=== PATIENT | female | born 1985 | race Caucasian/White ===

== ENCOUNTER → 2017-08-10 | Outpatient (CLI) | payer BC ==
[~2017-08-10] MED LIST: IBUP-1428 PO; SERT50TA PO; SUMA25TA12 PO; TOPI50TA16 PO
== END | disposition home or self-care (01) ==
LOC: C.LABSPEC 13:39
PROVIDERS: ATTEND Obstetrics & Gynecology
DX: Z34.81 Encounter for supervision of other normal pregnancy, first trimester (principal)

== ENCOUNTER → 2017-08-11 | Outpatient (CLI) | payer BC | END | disposition home or self-care (01) | LOC: C.LABSPEC 17:37 | PROVIDERS: ATTEND Obstetrics & Gynecology | DX: Z34.81 Encounter for supervision of other normal pregnancy, first trimester (principal) ==

== ENCOUNTER → 2017-08-11 | Outpatient (CLI) | payer BC | END | disposition home or self-care (01) | LOC: C.PAPS 07:57 | PROVIDERS: ATTEND Obstetrics & Gynecology | DX: Z34.81 Encounter for supervision of other normal pregnancy, first trimester (principal) ==

== ENCOUNTER → 2017-08-11 | Outpatient (CLI) | payer BC ==
[2017-08-11 16:14] LABS: BASO % 0.4 %; BASO ABS # 0.04 K/uL (0-0.2); EOS % 1.9 %; HEMATOCRIT 37.2 % (37-47); HEMOGLOBIN 12.3 g/dL (12.0-16.0); IG# 0.03 K/uL (0.00-0.02); LYMPH % 31.7 %; LYMPH ABS # 3.37 K/uL (1.2-3.4); MEAN CELL VOLUME 93.2 fL (80-100); MEAN CORPUSCULAR HEMOGLOBIN 30.8 pg (25-34); MEAN CORPUSCULAR HGB CONC 33.1 g/dl (32-36); MEAN PLATELET VOLUME 9.6 fL (7.4-10.4); MONO % 14.6 %; MONO ABS # 1.55 K/uL (0.11-0.59); NEUT % 51.1 %; NEUT ABS # 5.45 K/uL (1.4-6.5); PLATELET COUNT 287 K/uL (130-400); RED CELL DISTRIBUTION WIDTH CV 13.2 % (11.5-14.5); RED CELL DISTRIBUTION WIDTH SD 45.4 fL (36.4-46.3); WHITE BLOOD COUNT 10.64 K/uL (4.8-10.8)
== END | disposition home or self-care (01) ==
LOC: C.LAB1850 15:41
PROVIDERS: ATTEND Obstetrics & Gynecology
DX: Z34.81 Encounter for supervision of other normal pregnancy, first trimester (principal)

== ENCOUNTER → 2017-10-03 | Outpatient (CLI) | payer BC | END | disposition home or self-care (01) | LOC: C.LAB1850 09:50 | PROVIDERS: ATTEND Obstetrics & Gynecology | DX: Z34.82 Encounter for supervision of other normal pregnancy, second trimester (principal) ==

== ENCOUNTER 2017-10-14 17:36 | Emergency (ER) | payer BC ==
[~2017-10-14] VITALS: Ht 160 cm; Wt 96.1 kg
[2017-10-14 17:40] VITALS: TEMP 36.7; Ht 160 cm; Wt 96.1 kg
[2017-10-14] MEDS ORDERED: ONDA4TAB10 SL (18:01)
[2017-10-14] MEDS ORDERED: SODIUM CHLORIDE 0.9% 1000ML 2,000 ML IV STA (18:07)
[2017-10-14] MEDS ORDERED: ACETAMINOPHEN 500 MG TAB PO STA (18:07)
[2017-10-14] MEDS ORDERED: RANITIDINE HCL 150 MG TAB PO ONE (18:15)
--- NOTE | 2017-10-14 18:18 | EMERGENCY ROOM VISIT NOTE ---
History Report prepared by Shadi: Betina Rhodes Under the Supervision of: Dr. Modesto Henderson M.D. First contact with patient: 18:01 Chief Complaint: ABDOMINAL PAIN Stated Complaint: UPPER ABDOMINAL PAIN, ABOVE BELLY BUTTON- 18WKS OR History of Present Illness The patient is a 32 year old female who presents to the Emergency Room with complaints of constant abdominal pain beginning 3 weeks ago. The patient is 18 weeks . The patient had an appointment wit her OBGYN two weeks ago who told he her "things were just stretching". She called her OBGYN last night who told her that her symptoms may be related to her kidney stones. The patient reports her pain worsened this morning when she woke up. She rates her pain is an 8/10 when she moves. She states her pain worsened with movement. She reports eating does not worsen her pain. The patient took "gas pills" today with no relief. She denies any nausea, vomiting, chest pain, shortness of breath, vaginal bleeding or discharge. She has been eating and drinking normally. The patient reports her stools have been harder than normal. She states her last bowel movement was last night. This is the patient's 3rd . She denies any issues with her previous pregnancies. The patient last took Tylenol two hours ago. Source of History: patient Onset: 3 weeks ago Position: abdomen Symptom Intensity: 8/10 Quality: other (pain) Timing: constant Modifying Factors (Worsening): movement Associated Symptoms: + abdominal pain, No chest pain, No SOB, No nausea, No vomiting Review of Systems See HPI for pertinent positives and negatives. A total of ten systems were reviewed and were otherwise negative. Past Medical & Surgical Medical Problems: (1) Anxiety (2) Headache, chronic migraine without aura (3) Previous section Social History Smoking Status: Former Smoker Marital Status: Housing Status: lives with family Occupation Status: employed Current/Historical Medications Scheduled Ondasetron Odt (Zofran Odt), 4 MG SL Q6H Allergies Coded Allergies: Chocolate (Verified Allergy, Intermediate, HIVES, 08/07/10) Physical Exam Vital Signs Date Time Temp Pulse Resp B/P (MAP) Pulse Ox O2 Delivery O2 Flow Rate FiO2 10/14/17 22:24 75 18 118/74 98 10/14/17 21:56 78 5/5/18 20:53 85 18 125/83 98 Room Air 10/14/17 18:58 91 15 126/83 98 Room Air 10/14/17 18:54 95 10/14/17 17:40 36.7 104 20 141/93 98 Room Air Physical Exam GENERAL: Awake, alert, well-appearing, in no distress HENT: Normocephalic, atraumatic. Oropharynx unremarkable. EYES: Normal conjunctiva. Sclera non-icteric. NECK: Supple. No nuchal rigidity. FROM. No JVD. RESPIRATORY: Clear to auscultation. CARDIAC: Regular rate, normal rhythm. Extremities warm and well perfused. Pulses equal. ABDOMEN: Intermittent mild tenderness to upper abdomen. Soft, non-distended. No rebound or guarding. No masses. RECTAL: Deferred. MUSCULOSKELETAL: Chest examination reveals no tenderness. The back is symmetrical on inspection without obvious abnormality. There is no CVA tenderness to palpation. No joint edema. LOWER EXTREMITIES: Calves are equal size bilaterally and non-tender. No edema. No discoloration. NEURO: Normal sensorium. No sensory or motor deficits noted. SKIN: No rash or jaundice noted. Medical Decision & Procedures ER Provider Diagnostic Interpretation: Radiology results as stated below per my review and radiologist interpretation: LIMITED (US) FINDINGS: Uterus: Single live intrauterine . Femur length 23 mm corresponding to an estimated gestational age of 16 weeks 6 days. This equates to a estimated date of delivery 03/25/2018. This is within the expected range for the reported gestational age. heart rate 153 beats per minute. Anteverted uterus. Normal amniotic fluid volume. Posterior placental implantation. No perigestational fluid to suggest hemorrhage. Cervix long and closed. Right adnexum: Right ovary not visualized. Left adnexum: Left ovary contains a corpus luteum. Left ovary measures 3.0 x 1.5 x 2.8 cm. Normal color Doppler flow and arterial and venous waveforms within the ovarian parenchyma. Other: No free fluid. IMPRESSION: Single live intrauterine second trimester fetus with an estimated gestational age of 16 weeks 6 days by this ultrasound, which is concordant with the reported gestational age of 17 weeks 3 days. No abnormality. Dedicated anatomic survey was not performed. Electronically signed by: Ez Carmona M.D. GALLBLADDER-ABD LIMITED FINDINGS: Pancreas: Visualized portions of the pancreatic head and body normal. Liver: Normal echogenicity and echotexture. The liver measures 16.2 cm in maximal sagittal dimension. No sonographic evidence of hepatic mass. Main portal vein patent with normal directional flow. Biliary: No intrahepatic biliary ductal dilatation. Common bile duct measures up to 3 mm in diameter. Gallbladder: No evidence of gallstones, gallbladder wall thickening, gallbladder distention, or pericholecystic fluid or inflammatory change. Sonographic Francis's sign negative. Right kidney: Normal in appearance without evidence of hydronephrosis. Ascites: None. Other: None. IMPRESSION: No cholelithiasis or biliary ductal dilatation. Electronically signed by: Ez Carmona M.D. 10/14/2017 9:14 PM Laboratory Results 10/14/17 18:40 Red Blood Count 3.76, Mean Corpuscular Volume 90.4, Mean Corpuscular Hemoglobin 31.4, Mean Corpuscular Hemoglobin Concent 34.7, Mean Platelet Volume 9.5, Neutrophils (%) (Auto) 62.3, Lymphocytes (%) (Auto) 26.0, Monocytes (%) (Auto) 9.9, Eosinophils (%) (Auto) 1.4, Basophils (%) (Auto) 0.1, Neutrophils # (Auto) 5.76, Lymphocytes # (Auto) 2.41, Monocytes # (Auto) 0.92, Eosinophils # (Auto) 0.13, Basophils # (Auto) 0.01 10/14/17 18:40 Test 10/14/17 18:40 White Blood Count 9.26 K/uL (4.8-10.8) Red Blood Count 3.76 M/uL (4.2-5.4) Hemoglobin 11.8 g/dL (12.0-16.0) Hematocrit 34.0 % (37-47) Mean Corpuscular Volume 90.4 fL (80-100) Mean Corpuscular Hemoglobin 31.4 pg (25-34) Mean Corpuscular Hemoglobin Concent 34.7 g/dl (32-36) Platelet Count 255 K/uL (130-400) Mean Platelet Volume 9.5 fL (7.4-10.4) Neutrophils (%) (Auto) 62.3 % Lymphocytes (%) (Auto) 26.0 % Monocytes (%) (Auto) 9.9 % Eosinophils (%) (Auto) 1.4 % Basophils (%) (Auto) 0.1 % Neutrophils # (Auto) 5.76 K/uL (1.4-6.5) Lymphocytes # (Auto) 2.41 K/uL (1.2-3.4) Monocytes # (Auto) 0.92 K/uL (0.11-0.59) Eosinophils # (Auto) 0.13 K/uL (0-0.5) Basophils # (Auto) 0.01 K/uL (0-0.2) RDW Standard Deviation 42.2 fL (36.4-46.3) RDW Coefficient of Variation 12.8 % (11.5-14.5) Immature Granulocyte % (Auto) 0.3 % Immature Granulocyte # (Auto) 0.03 K/uL (0.00-0.02) Urine Color YELLOW Urine Appearance CLEAR (CLEAR) Urine pH 6.5 (4.5-7.5) Urine Specific [place] 1.018 (1.000-1.030) Urine Protein NEG (NEG) Urine Glucose (UA) NEG (NEG) Urine Ketones 1+ (NEG) Urine Occult Blood NEG (NEG) Urine Nitrite NEG (NEG) Urine Bilirubin NEG (NEG) Urine Urobilinogen NEG (NEG) Urine Leukocyte Esterase NEG (NEG) Anion Gap 6.0 mmol/L (3-11) Est Creatinine Clear Calc Drug Dose 204.3 ml/min Estimated GFR () > 150.0 Estimated GFR (Non- 134.5 BUN/Creatinine Ratio 13.3 (10-20) Calcium Level 8.7 mg/dl (8.5-10.1) Total Bilirubin 0.2 mg/dl (0.2-1) Direct Bilirubin < 0.1 mg/dl (0-0.2) Aspartate Amino Transf (AST/SGOT) 12 U/L (15-37) Alanine Aminotransferase (ALT/SGPT) 16 U/L (12-78) Alkaline Phosphatase 92 U/L (45-117) Total Protein 6.5 gm/dl (6.4-8.2) Albumin 2.6 gm/dl (3.4-5.0) Lipase 66 U/L (73-393) Laboratory results reviewed by me Medications Administered Medications (Trade) Dose Ordered Sig/Luis Route Start Time Stop Time Status Last Admin Dose Admin Sodium Chloride 2,000 ml @ 999 mls/hr Q2H1M STAT IV 5/5/18 18:07 10/14/17 20:07 DC 10/14/17 18:30 999 MLS/HR Ranitidine HCl (zANTac TAB) 150 mg NOW ONCE PO 10/14/17 18:15 10/14/17 18:20 DC 10/14/17 18:29 150 MG Acetaminophen (Tylenol Tab) 1,000 mg NOW STAT PO 10/14/17 18:07 10/14/17 18:20 DC 10/14/17 18:30 1,000 MG ED Course 1805: The patient was evaluated in room B10. A complete history and physical exam was performed. 2147: I updated the patient on her test results. She is resting comfortably. 2214: I reevaluated the patient. Discussed results and discharge instructions: She verbalized understanding and agreement. The patient is ready for discharge. Medical Decision I reviewed the patient's past medical history, medications, and the nursing notes as described above. Differential diagnosis: Etiologies such as appendicitis, diverticulitis, PUD, biliary pathology, UTI, pancreatitis, obstruction, mesenteric ischemia, aortic pathology, infections, inflammatory bowel disease, renal colic, as well as others were entertained. The patient is a 32 y/o woman current 18 weeks GA who presents to the emergency department with abdominal wall pain x 2 weeks per HPI. On arrival the patient is well-appearing, in NAD, AFVSS. On exam the patient has mild upper abdominal wall ttp however no tenderness with performing bedside ultrasound. Bedside ultrasound demonstrates active fetus with FHR 160. Gallbladder ultrasound at the bedside unremarkable negative for gallstones or pericholecystic fluid. Bedside renal ultrasound negative for hydronephrosis. Formal gallbladder ultrasound also unremarkable. Labs unremarkable. Patient reports no improvement with zantac therefore unlikely to be gastritis/ reflux. Given the patient's reproducible abdominal wall discomfort the setting of reassuring w/u, sx most c/w abdominal muscle strain, possible related to stretching from . Plan for pcp f/u and OB f/u as scheduled. Findings and plan for follow-up reviewed with patient. Patient agreeable and d/c'd per discharge instructions. Medication Reconcilliation Current Medication List: was personally reviewed by me Blood Pressure Screening Patient's blood pressure: Normal blood pressure Impression Primary Impression: Abdominal muscle strain Scribe Attestation The scribe's documentation has been prepared under my direction and personally reviewed by me in its entirety. I confirm that the note above accurately reflects all work, treatment, procedures, and medical decision making performed by me. 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 Your symptoms are most likely due to an abdominal wall muscle strain. Otherwise, your exam, lab results, and gallbladder ultrasound did not show signs of an emergent condition at this time. Acetaminophen for pain and fevers as needed. Drink plenty of fluids to ensure hydration. Return to the emergency department for worsening symptoms as described in the accompanying instructions.
[2017-10-14 18:55] LABS: BASO % 0.1 %; BASO ABS # 0.01 K/uL (0-0.2); EOS % 1.4 %; EOS ABS # 0.13 K/uL (0-0.5); HEMOGLOBIN 11.8 g/dL (12.0-16.0); IG# 0.03 K/uL (0.00-0.02); LYMPH ABS # 2.41 K/uL (1.2-3.4); MEAN CELL VOLUME 90.4 fL (80-100); MEAN CORPUSCULAR HEMOGLOBIN 31.4 pg (25-34); MEAN CORPUSCULAR HGB CONC 34.7 g/dl (32-36); MEAN PLATELET VOLUME 9.5 fL (7.4-10.4); MONO % 9.9 %; MONO ABS # 0.92 K/uL (0.11-0.59); NEUT % 62.3 %; NEUT ABS # 5.76 K/uL (1.4-6.5); PLATELET COUNT 255 K/uL (130-400); RED CELL DISTRIBUTION WIDTH CV 12.8 % (11.5-14.5); RED CELL DISTRIBUTION WIDTH SD 42.2 fL (36.4-46.3); WHITE BLOOD COUNT 9.26 K/uL (4.8-10.8)
[2017-10-14 19:13] LABS: ALBUMIN 2.6 gm/dl (3.4-5.0); ALT/SGPT 16 U/L (12-78); AST/SGOT 12 U/L (15-37); BLOOD UREA NITROGEN 6 mg/dl (7-18); CALCIUM 8.7 mg/dl (8.5-10.1); CARBON DIOXIDE 23 mmol/L (21-32); CREATININE 0.44 mg/dl (0.60-1.20); GLUCOSE 114 mg/dl (70-99); LIPASE 66 U/L (73-393); POTASSIUM 3.3 mmol/L (3.5-5.1); SODIUM 137 mmol/L (136-145)
[2017-10-14 19:16] LABS: ALKALINE PHOSPHATASE 92 U/L (45-117); TOTAL PROTEIN 6.5 gm/dl (6.4-8.2)
--- NOTE | 2017-10-14 21:05 | DIAGNOSTIC IMAGING REPORT ---
LIMITED (US) CLINICAL HISTORY: 32 years-old Female presenting with transabdominal ultrasound, upper abd pain, , reportedly 17 weeks 3 days with an estimated date of delivery 03/21/2018. TECHNIQUE: Real-time grayscale and M-mode Doppler ultrasound imaging of the pelvis was performed using a transabdominal probe. Color and spectral Doppler ultrasound imaging of the adnexa was also performed. COMPARISON: None. FINDINGS: Uterus: Single live intrauterine . Femur length 23 mm corresponding to an estimated gestational age of 16 weeks 6 days. This equates to a estimated date of delivery 03/25/2018. This is within the expected range for the reported gestational age. heart rate 153 beats per minute. Anteverted uterus. Normal amniotic fluid volume. Posterior placental implantation. No perigestational fluid to suggest hemorrhage. Cervix long and closed. Right adnexum: Right ovary not visualized. Left adnexum: Left ovary contains a corpus luteum. Left ovary measures 3.0 x 1.5 x 2.8 cm. Normal color Doppler flow and arterial and venous waveforms within the ovarian parenchyma. Other: No free fluid. IMPRESSION: Single live intrauterine second trimester fetus with an estimated gestational age of 16 weeks 6 days by this ultrasound, which is concordant with the reported gestational age of 17 weeks 3 days. No abnormality. Dedicated anatomic survey was not performed. Electronically signed by: Ez Carmona M.D. 10/14/2017 9:04 PM Dictated Date/Time: 10/14/2017 9:00 PM
--- NOTE | 2017-10-14 21:15 | DIAGNOSTIC IMAGING REPORT ---
GALLBLADDER-ABD LIMITED CLINICAL HISTORY: 32 years-old Female presenting with upper abd pain. TECHNIQUE: Real-time grayscale and limited color Doppler ultrasound imaging of the abdomen limited to the right upper quadrant was performed. COMPARISON: None. FINDINGS: Pancreas: Visualized portions of the pancreatic head and body normal. Liver: Normal echogenicity and echotexture. The liver measures 16.2 cm in maximal sagittal dimension. No sonographic evidence of hepatic mass. Main portal vein patent with normal directional flow. Biliary: No intrahepatic biliary ductal dilatation. Common bile duct measures up to 3 mm in diameter. Gallbladder: No evidence of gallstones, gallbladder wall thickening, gallbladder distention, or pericholecystic fluid or inflammatory change. Sonographic Francis's sign negative. Right kidney: Normal in appearance without evidence of hydronephrosis. Ascites: None. Other: None. IMPRESSION: No cholelithiasis or biliary ductal dilatation. Electronically signed by: Ez Carmona M.D. 10/14/2017 9:14 PM Dictated Date/Time: 10/14/2017 9:13 PM
[2017-10-14 22:24] VITALS: BP 118/74; PULSE 75; O2SAT 98
== END 2017-10-14 22:25 | disposition home or self-care (01) ==
LOC: C.EDB 17:37
DX: S39.011A Strain of muscle, fascia and tendon of abdomen, initial encounter (principal); X50.1XXA Overexertion from prolonged static or awkward postures, initial encounter; Z3A.18 18 weeks gestation of pregnancy; Z87.891 Personal history of nicotine dependence; Z91.018 Allergy to other foods

== ENCOUNTER → 2017-10-17 | Outpatient (CLI) | payer BC ==
[~2017-10-17] MED LIST changes: -IBUP-1428 PO; +ONDA4TAB10 SL; -SERT50TA PO; -SUMA25TA12 PO; -TOPI50TA16 PO
== END | disposition home or self-care (01) ==
LOC: C.LAB1850 08:34
PROVIDERS: ATTEND Obstetrics & Gynecology
DX: O28.1 Abnormal biochemical finding on antenatal screening of mother (principal); Z3A.00 Weeks of gestation of pregnancy not specified

== ENCOUNTER → 2018-01-01 | Outpatient (CLI) | payer BC ==
[~2018-01-01] MED LIST changes: +CLR10 PO; +OXYC-737 PO
[2018-01-01 12:18] LABS: HEMATOCRIT 33.7 % (37-47); HEMOGLOBIN 11.2 g/dL (12.0-16.0)
== END | disposition home or self-care (01) ==
LOC: C.LAB1850 11:07
PROVIDERS: ATTEND Obstetrics & Gynecology
DX: O24.419 Gestational diabetes mellitus in pregnancy, unspecified control (principal)

== ENCOUNTER 2018-01-30 08:37 | Outpatient (CLI) | payer BC ==
[~2018-01-30] VITALS: Ht 160 cm; Wt 100.7 kg
[2018-01-30 10:05] VITALS: Ht 160 cm; Wt 100.7 kg
[2018-01-30] MEDS ORDERED: PRENTAB26 PO (10:09)
[2018-01-30] MEDS ORDERED: ACETAMINOPHEN 325 MG TAB PO PRN (11:15)
== END 2018-01-30 11:40 | disposition other institution (70) ==
LOC: C.OPB 08:37 → C.LD 08:38 → C.OPB 11:40
PROVIDERS: ATTEND Obstetrics & Gynecology
DX: Z34.83 Encounter for supervision of other normal pregnancy, third trimester (principal); W10.9XXA Fall (on) (from) unspecified stairs and steps, initial encounter; Z3A.33 33 weeks gestation of pregnancy

== ENCOUNTER 2018-01-30 11:48 | Emergency (ER) | payer BC ==
[~2018-01-30 11:48] MED LIST changes: +PRENTAB26 PO
[2018-01-30 11:59] VITALS: TEMP 36.9; Ht 160 cm
--- NOTE | 2018-01-30 12:45 | DIAGNOSTIC IMAGING REPORT ---
R ANKLE MIN 3 VIEWS ROUTINE CLINICAL HISTORY: Right ankle pain following fall. COMPARISON: None FINDINGS: Alignment of the right ankle is anatomic. No acute fracture. Talar dome is intact. IMPRESSION: No acute fracture or dislocation within the right ankle. Electronically signed by: Ronald Wilson M.D. 01/30/2018 12:44 PM Dictated Date/Time: 01/30/2018 12:43 PM
--- NOTE | 2018-01-30 12:47 | DIAGNOSTIC IMAGING REPORT ---
R FOOT MIN 3 VIEWS ROUTINE CLINICAL HISTORY: Right foot pain following fall. COMPARISON: None FINDINGS: Tarsometatarsal joints are intact. No acute fracture within the right foot is identified. No osseous lesion is identified. No erosions are identified. Lateral view demonstrates suspected dorsal midfoot soft tissue swelling. IMPRESSION: No acute fracture or dislocation within the right foot. Electronically signed by: Ronald Wilson M.D. 01/30/2018 12:46 PM Dictated Date/Time: 01/30/2018 12:44 PM
--- NOTE | 2018-01-30 13:15 | EMERGENCY ROOM VISIT NOTE ---
History First contact with patient: 12:08 Chief Complaint: FALL Stated Complaint: PAIN IN RIGHT FOOT, ANKLE, KNEE AND BACK History of Present Illness The patient is a 32 year old female who presents to the Emergency Room with complaints of right ankle and low back pain. The patient reports that she woke up early this morning to go to the bathroom and slid down the steps. She reports pain in her right ankle as well as her right low back. The patient is currently 33 weeks . She was already seen at L&D and monitored for 3 hours. She reports she has no abdominal pain or vaginal bleeding. She rates her overall discomfort a 5/10. She has taken Tylenol for pain with little relief. Review of Systems A complete 10 point review of systems was reviewed with the patient with pertinent positives and negatives as per history of present illness. All else were negative. Past Medical/Surgical History Medical Problems: (1) 33 weeks gestation of (2) Anxiety (3) Fall (on) (from) other stairs and steps, initial encounter (4) Headache, chronic migraine without aura (5) Previous section Family History Diabetes mellitus FHx: cancer FHx: gallbladder disease FHx: heart disease FHx: hypertension FHx: kidney disease Social History Smoking Status: Former Smoker Alcohol Use: none Marital Status: Housing Status: lives with family Occupation Status: employed Current/Historical Medications Scheduled Loratadine (Claritin), 10 MG PO DAILY Multivit/Min/Iron/Fol Ac/Pren ( Vitamin), 1 TAB PO DAILY Ondasetron Odt (Zofran Odt), 4-8 MG SL Q6H Physical Exam Vital Signs Date Time Temp Pulse Resp B/P (MAP) Pulse Ox O2 Delivery O2 Flow Rate FiO2 01/30/18 13:30 76 18 115/72 98 Room Air 01/30/18 11:59 36.9 97 18 134/87 99 Room Air Physical Exam VITALS: Vitals are noted on the nurse's note and reviewed by myself. Vital signs stable. GENERAL: This is a 32-year-old female, in no acute distress, nondiaphoretic, well-developed well-nourished. SKIN: No lacerations or abrasions. MUSCULOSKELETAL: There is mild tenderness to palpation in the right lumbar region. No tenderness of the lumbar spinous processes. There is tenderness of the medial aspect of the right ankle and foot. Full range of motion of the ankle and all toes. Capillary refill within 2 seconds. No tenderness of the proximal fibula/tibia. NEURO: Patient was alert and oriented to person place and time. Distal sensation intact. Medical Decision & Procedures ER Provider Diagnostic Interpretation: R ANKLE MIN 3 VIEWS ROUTINE IMPRESSION: No acute fracture or dislocation within the right ankle. R FOOT MIN 3 VIEWS ROUTINE IMPRESSION: No acute fracture or dislocation within the right foot. Medical Decision Differential diagnosis includes fracture, contusion, sprain, among others. The patient was evaluated as above. X-rays of the right ankle and foot were obtained and read by radiology with no acute fractures. Patient has some mild tenderness in the right lumbar region which is likely musculoskeletal. I am not highly suspicious of fracture and x-ray was not performed given patient's . She was advised to continue Tylenol. Conservative measures were discussed. She verbalized understanding of my assessment and treatment plan and was discharged home in good condition. Medication Reconcilliation Current Medication List: was personally reviewed by me Blood Pressure Screening Patient's blood pressure: Normal blood pressure Impression Primary Impression: Right ankle pain Additional Impression: Fall Departure Information Dispostion Home / Self-Care Condition GOOD Referrals No Doctor, Assigned (PCP) Patient Instructions My [facility] Additional Instructions You have been treated in the Emergency Department for an Ankle injury. For pain control, you can use the following [id number] medicines (if >12 yo): - Regular strength (325mg/tab) Tylenol (acetaminophen) 2 tabs every 4-6 hours as needed. Do not exceed 12 tablets in a 24 hour period. Avoid taking more than 4 grams (4000 mg) of Tylenol per day. This includes any other sources of acetaminophen you may take on a regular basis. If this is a recent injury (<24 hrs), ice can be applied to the area of pain for the first 3 days to help decrease pain and inflammation. Wear the ankle splint as needed for pain. Rest and elevate the ankle as much as possible. Follow-up with your primary care provider, orthopedics or [employer] if you have persistent pain or any other problems. Return to the Emergency Department if your current symptoms worsen despite treatment course outlined above, or if you develop any of the following symptoms : intractable pain despite aforementioned treatment course or new onset of numbness or tingling of the foot. Problem Qualifiers Primary Impression: Right ankle pain Chronicity: acute Qualified Codes: M25.571 - Pain in right ankle and joints of right foot Additional Impression: Fall Encounter type: initial encounter Qualified Codes: W19.XXXA - Unspecified fall, initial encounter
[2018-01-30 13:30] VITALS: BP 115/72; PULSE 76; O2SAT 98
== END 2018-01-30 13:40 | disposition home or self-care (01) ==
LOC: C.EDB 11:49 → C.EDC 13:40
DX: S99.911A Unspecified injury of right ankle, initial encounter (principal); M25.571 Pain in right ankle and joints of right foot; M54.5 Low back pain; W10.9XXA Fall (on) (from) unspecified stairs and steps, initial encounter; Y92.009 Unspecified place in unspecified non-institutional (private) residence as the place of occurrence of the external cause; Z3A.33 33 weeks gestation of pregnancy